=== PATIENT | male | born 1965 | race African-American/Black ===

== ENCOUNTER 2022-09-27 17:07 | Emergency (ER) | payer SELFPAY ==
[~2022-09-27] VITALS: Ht 170.2 cm; Wt 78.0 kg
[2022-09-27 17:27] VITALS: BP 132/102
[2022-09-27] MEDS ORDERED: ACYC200C31 MT (20:19)
== END 2022-09-27 20:42 | disposition home or self-care (01) ==
LOC: ER 17:07 → EDBD 17:07 → ER 20:42
DX: B00.1 Herpesviral vesicular dermatitis (principal); Z98.890 Other specified postprocedural states
CPT/HCPCS: 99281

== ENCOUNTER 2022-10-05 18:36 | Emergency (ER) | payer SELFPAY ==
[~2022-10-05] VITALS: Ht 170.2 cm; Wt 75.0 kg
[~2022-10-05 18:36] MED LIST: ACYC200C31 MT
[2022-10-05 18:46] VITALS: BP 138/79
[2022-10-05] MEDS ORDERED: ACETAMINOPHEN 325MG TABLET PO STA (19:13)
[2022-10-05 20:12] LABS: CHLORIDE 105 mEq/L (98-107)
[2022-10-05 20:15] LABS: HEMOGLOBIN. 12.8 g/dL (14.0-18.0); MEAN CORPUSCULAR HEMOGLOBIN 28.6 pg (28.0-32.0); MEAN CORPUSCULAR VOLUME 82.8 fL (80.0-94.0); MEAN PLATELET VOLUME 9.2 fl (7.4-10.4); PLATELET 125 x1000/uL (130-400); RED BLOOD CELL COUNT 4.47 mill/uL (4.7-6.1); RED CELL DISTRIBUTION WIDTH 15.3 % (11.6-14.6)
[2022-10-05 20:20] LABS: CLARITY URINE CLEAR (CLEAR); COLOR URINE YELLOW (YELLOW); KETONES URINE TRACE (NEGATIVE); LEUKOCYTE ESTERASE URINE NEGATIVE (NEGATIVE); NITRITE URINE NEGATIVE (NEGATIVE); OCCULT BLOOD URINE NEGATIVE (NEGATIVE); PH URINE 5.5 (4.5-8.0); PROTEIN URINE TRACE (NEGATIVE); SPECIFIC GRAVITY URINE 1.039 (1.005-1.030)
[2022-10-05 22:08] LABS: PLATELET ESTIMATE SLIGHTLY DECREASED
== END 2022-10-05 20:49 | disposition home or self-care (01) ==
LOC: ER 18:51
DX: B34.9 Viral infection, unspecified (principal)
CPT/HCPCS: 36415; 71045; 80053; 81003; 85025; 99284

== ENCOUNTER 2024-01-04 12:44 | Emergency (ER) | payer MEDICAID, OTHER ==
[~2024-01-04] VITALS: Ht 170.2 cm; Wt 75.0 kg
[2024-01-04 12:53] VITALS: BP 159/90; RESP 18; TEMP 98.1; O2SAT 100
[2024-01-04 12:59] VITALS: PULSE 88
[2024-01-04 14:28] LABS: EOSINOPHILS % 1.1 % (0.0-5.0); HEMATOCRIT. 38.9 % (42.0-52.0); HEMOGLOBIN. 12.9 g/dL (14.0-18.0); LYMPHOCYTES % 34.7 % (20.0-50.0); MEAN CORPUSCULAR HEMOGLOBIN 28.2 pg (28.0-32.0); MEAN CORPUSCULAR HGB CONC 33.2 g/dL (31.0-37.0); MEAN CORPUSCULAR VOLUME 85.2 fL (80.0-94.0); MEAN PLATELET VOLUME 9.5 fl (7.4-10.4); MONOCYTES % 8.9 % (2.0-8.0); NEUTROPHILS % 54.3 % (40.0-76.0); PLATELET 153 x1000/uL (130-400); RED BLOOD CELL COUNT 4.57 mill/uL (4.7-6.1); RED CELL DISTRIBUTION WIDTH 13.8 % (11.6-14.6); WHITE BLOOD COUNT 3.9 x1000/uL (4.5-11.0)
[2024-01-04 14:58] LABS: CHLORIDE 107 mEq/L (98-107); POTASSIUM 3.3 mEq/L (3.5-5.1); SODIUM 141 mEq/L (136-145)
[2024-01-04 14:59] LABS: CARBON DIOXIDE 26 mEq/L (21-32)
[2024-01-04 15:00] LABS: CALCIUM 8.6 mg/dL (8.7-10.4)
[2024-01-04 15:04] LABS: CREATININE 1.1 mg/dL (0.6-1.3); GLUCOSE 97 mg/dL (70-105)
[2024-01-04 15:05] LABS: UREA NITROGEN BLOOD 17 mg/dL (9-23)
[2024-01-04 15:06] LABS: ACETAMINOPHEN < 2 ug/mL (10-30); ALANINE AMINOTRANSFERASE 69 IU/L (10-49); ALBUMIN 3.8 g/dL (3.2-4.8); ASPARTATE AMINOTRANSFERASE 177 IU/L (<34)
[2024-01-04 15:07] LABS: BILIRUBIN TOTAL 0.8 mg/dL (0.1-1.0)
[2024-01-04 15:20] LABS: ETHANOL BLOOD < 10 mg/dL (<10)
== END 2024-01-04 19:48 | disposition left against medical advice (07) ==
LOC: ER 12:44
DX: F32.A Depression, unspecified (principal)
CPT/HCPCS: 80053; 80307; 80329; 80320; 85025; 36415; 99283; Z7610; G0480

== ENCOUNTER 2024-12-28 20:34 | Emergency (ER) | payer OTHER ==
[~2024-12-28] VITALS: Ht 170.2 cm; Wt 68.0 kg
[2024-12-28 20:38] VITALS: TEMP 36.8; O2SAT 100
[2024-12-28 21:48] LABS: BASOPHILS % 1.2 % (0.0-2.0); EOSINOPHILS % 4.6 % (0.0-5.0); HEMATOCRIT. 40.5 % (42.0-52.0); HEMOGLOBIN. 13.9 g/dL (14.0-18.0); LYMPHOCYTES % 39.9 % (20.0-50.0); MEAN CORPUSCULAR HGB CONC 34.2 g/dL (31.0-37.0); MEAN CORPUSCULAR VOLUME 81.7 fL (80.0-94.0); MONOCYTES % 9.8 % (2.0-8.0); NEUTROPHILS % 44.5 % (40.0-76.0); PLATELET 102 x1000/uL (130-400); RED BLOOD CELL COUNT 4.96 mill/uL (4.7-6.1); RED CELL DISTRIBUTION WIDTH 13.4 % (11.6-14.6); WHITE BLOOD COUNT 3.4 x1000/uL (4.5-11.0)
[2024-12-28 22:09] LABS: INR 0.9; PROTHROMBIN TIME 9.7 sec (9.6-11.0)
[2024-12-28 22:27] LABS: CHLORIDE 103 mEq/L (98-107); POTASSIUM 4.1 mEq/L (3.5-5.1); SODIUM 137 mEq/L (136-145)
[2024-12-28 22:29] LABS: CALCIUM 8.9 mg/dL (8.7-10.4); CARBON DIOXIDE 26 mEq/L (21-32)
[2024-12-28 22:33] LABS: CREATININE 0.9 mg/dL (0.6-1.3)
[2024-12-28 22:34] LABS: ETHANOL BLOOD < 10 mg/dL (<10); GLUCOSE 109 mg/dL (70-105); UREA NITROGEN BLOOD 13 mg/dL (9-23)
[2024-12-28 22:40] LABS: TROPONIN I HIGH SENSITIVITY < 4 ng/L (3.0-53)
[2024-12-28] MEDS: ACETAMINOPHEN 325MG TABLET PO ONE (22:52)
[2024-12-28] MEDS: METOCLOPRAMIDE HCL 10MG/2ML VIAL IV ONE (22:52)
[2024-12-29 00:11] LABS: TROPONIN I HIGH SENSITIVITY < 4 ng/L (3.0-53)
[2024-12-29] MEDS ORDERED: ACET-2708 MT (04:05)
[2024-12-29] MEDS ORDERED: METO-293 MT (04:05)
[2024-12-29 04:08] VITALS: BP 149/90; PULSE 74; RESP 13; O2SAT 99
== END 2024-12-29 04:22 | disposition home or self-care (01) ==
LOC: ER 20:34
DX: R51.9 Headache, unspecified (principal); R29.810 Facial weakness; F41.9 Anxiety disorder, unspecified; Z79.899 Other long term (current) drug therapy
CPT/HCPCS: 80048; 80320; 85025; 85610; 86850; 86900; 86901; 84484; 36415; 71045; 70450; 93005; 96374; 99285; J2765; G0480